=== PATIENT | female | born 1955 | race Caucasian/White ===

== ENCOUNTER → 2016-10-08 | Outpatient (CLI) | payer SELFPAY ==
[~2016-10-08] MED LIST: ACIDOPHILUS LA1 EAC1 PO; Advair HFA 115/21 IH; FLEXERIL5 MG PO; FLOVENT DISKUS1 DIS2 IH; Habitrol,Nicoderm CQ TD; Humibid LA,Mucinex PO; Keflex PO; LOTENSIN HCT PO; Norvasc PO; PREDNISONE50 MG PO; SPIRIVA1 INHALATI IH; Theragran-M,Centrum, PO; ZITHROMAX Z-PA250 MG PO; Zinc Gluconate PO; predniSONE PO
== END | disposition home or self-care (01) ==
LOC: RAD 10:44
DX: J44.9 Chronic obstructive pulmonary disease, unspecified (principal); J84.10 Pulmonary fibrosis, unspecified
CPT/HCPCS: 71020

== ENCOUNTER → 2016-10-23 | Outpatient (CLI) | payer OTHER | END | disposition home or self-care (01) | LOC: RAD 12:22 | DX: J43.9 Emphysema, unspecified (principal) | CPT/HCPCS: 71260 ==

== ENCOUNTER → 2017-01-25 | Outpatient (CLI) | payer OTHER | END | disposition home or self-care (01) | LOC: RES 07:27 | DX: R94.2 Abnormal results of pulmonary function studies (principal) | CPT/HCPCS: 94060; 94729; 94760 ==